=== PATIENT | male | born 1960 | race Caucasian/White ===

== ENCOUNTER 2018-07-16 08:03 | Outpatient (CLI) | payer OTHER ==
--- NOTE | 2018-07-16 08:50 | ULT ---
ULTRASOUND RENAL DOPPLER DUPLEX: DATE: 07/16/2018 HISTORY: 58-year-old male with hypertension TECHNIQUE: Grayscale images of kidneys and bladder. Color flow and spectral analysis of bilateral renal arteries, select branches and adjacent abdominal aorta. FINDINGS: Right kidney 11.5 x 5.5 x 5 cm Left kidney: 12 x 6.5 x 6.5 cm No hydronephrosis bilaterally. No moderate sized or large renal cystic or solid mass identified. Urinary bladder volume 45 mL at time of scan. Highest peak systolic velocities: Right renal artery: 120 cm/s Left renal artery: 70 cm/s Abdominal aorta: 85 cm/s Renal artery to aorta ratio: Right: 1.4 Left: 0.8 Resistive index: Right arcuate: 0.60 Left arcuate: 0.61 IMPRESSION: Normal
--- NOTE | 2018-07-16 08:52 | ULT ---
See report of renal ultrasound
== END 2018-07-16 08:04 | disposition home or self-care (01) ==
LOC: SCSULT 08:03
PROVIDERS: ATTEND Family Medicine
DX: I10 Essential (primary) hypertension (principal)
CPT/HCPCS: 76700; 76770

== ENCOUNTER 2018-07-30 07:42 | Outpatient (CLI) | payer OTHER ==
--- NOTE | 2018-07-30 10:54 | MRI ---
MRI CERVICAL SPINE WITHOUT CONTRAST: HISTORY: M53.2X1, spinal instabilities atlanto-occipital joint. COMPARISON: None. FINDINGS: Cerebellar tonsils terminate at the level of the foramen magnum. No marrow infiltrative process. Th ere are type I Modic end plate changes at C5-6. Spinal cord signal is normal. No adenopathy. The levels are as follows: C2-3: Some low-grade uncinate process hypertrophy. No neural foraminal or spinal canal narrowing. Mild left facet arthrosis. C3-4: Mild disk desiccation. Moderate uncinate process hypertrophy. Broad-based posterior disk-ost eophyte complex. Moderate left and mild right neural foraminal narrowing. There is moderate left fa cet arthropathy. C4-5: There is moderate to severe left and mild right facet arthropathy. There is 1 mm anterolisthes is. Circumferential disk bulge. There is moderate bilateral neural foraminal narrowing. C5-6: Circumferential disk-osteophyte complex with effacement of the ventral CSF space with the spin al canal still measuring a centimeter. There is moderate left and mild right facet arthropathy. The re is moderate left and mild right neural foraminal narrowing. C6-7: Disk desiccation and circumferential disk-osteophyte complex. Mild facet arthrosis bilaterall y. Moderate to severe right and moderate left neural foraminal narrowing. IMPRESSION: Multilevel spondylosis with neural foraminal and spinal canal narrowing. POS: [facility]
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
== END 2018-07-30 07:43 | disposition home or self-care (01) ==
LOC: TBSIIMAG 07:42
DX: M47.26 Other spondylosis with radiculopathy, lumbar region (principal); M47.22 Other spondylosis with radiculopathy, cervical region; M53.2X1 Spinal instabilities, occipito-atlanto-axial region; M53.2X2 Spinal instabilities, cervical region; M99.01 Segmental and somatic dysfunction of cervical region; M50.322 Other cervical disc degeneration at C5-C6 level; M50.323 Other cervical disc degeneration at C6-C7 level; S13.4XXA Sprain of ligaments of cervical spine, initial encounter; M48.02 Spinal stenosis, cervical region
CPT/HCPCS: 72141; 72148